=== PATIENT | female | born 1960 | race Caucasian/White ===

== ENCOUNTER → 2021-02-24 15:47 | Outpatient (CLI) | payer BC, SELFPAY ==
--- NOTE | ~2021-02-24 | MM_ITS ---
EXAMINATION: MM screening [facility] BI w flower HISTORY: Screening mammogram TECHNIQUE: Craniocaudal and mediolateral oblique 3-D tomosynthesis images were obtained and synthetic 2-D images were generated. CAD analysis was submitted and interpreted. COMPARISON: No prior mammogram is available for comparison at this institution. BREAST PARENCHYMAL COMPOSITION: There are scattered areas of fibroglandular density. FINDINGS: There is a developing circumscribed 5 mm mass in the anterior lower inner quadrant of the r ight breast (craniocaudal Tomosynthesis image 18/82; MLO Tomosynthesis image 55/85). Diagnostic right mammogram and right breast ultrasound examination are recommended. Stable low-density circumscribed lobular approximately 1.5 cm mass is noted anteriorly in the lower i nner right breast. No suspicious mass, architectural distortion, malignant calcification, skin thickening or retraction or significant new or developing density of either breast is noted otherwise. IMPRESSION: 1. Developing 5 mm mass in the anterior lower inner right breast 2. Diagnostic right mammogram and right breast ultrasound examination are recommended. BI-RADS Category 0: Incomplete: Needs additional imaging evaluation. Reviewed, dictated and finalized at location A. IMPRESSION: 1. Developing 5 mm mass in the anterior lower inner right breast 2. Diagnostic right mammogram and right breast ultrasound examination are recom mended. BI-RADS Category 0: Incomplete: Needs additional imaging evaluation.
== END ==
PROVIDERS: PCP Internal Medicine; Visit Provider Internal Medicine
DX: Z12.31 Encounter for screening mammogram for malignant neoplasm of breast (principal); R92.8 Other abnormal and inconclusive findings on diagnostic imaging of breast
CPT/HCPCS: 77063; 77067

== ENCOUNTER 2021-03-07 12:50 | Outpatient (CLI) | payer BC, SELFPAY ==
--- NOTE | ~2021-03-07 | MMUS_ITS ---
EXAMINATION: MM diagnostic mammo unilat RT, US breast RT limited HISTORY: Follow-up right breast mass TECHNIQUE: Additional 3-D tomosynthesis images of the right breast were performed and synthetic 2-D i mages were generated. CAD analysis was submitted and interpreted. High resolution Limited right breas t ultrasound was performed. COMPARISON: Comparison to multiple prior studies sequentially, with oldest reviewed study dated 03/19. BREAST PARENCHYMAL COMPOSITION: Breast composed of scattered areas of fibroglandular density. FINDINGS: MAMMOGRAPHIC FINDINGS: There is a persistent mass in the lower inner quadrant of the right breast with central lucency measu ring 6 mm, middle third. There is a larger mass with central lucency which is stable dating back to 2 014 measuring up to 1.7 cm. ULTRASOUND: Limited right breast ultrasound: Benign findings. At 3:00, 5 cm from the nipple there is a 6 mm cyst corresponding to the smaller abno rmality. At 5:00, 4 cm from the nipple, there is a complex oval circumscribed hypoechoic mass with mi xed posterior attenuation and no internal vascularity measuring 1.6 x 1.3 x 0.5 cm, likely benign ham artoma. IMPRESSION: 1. No evidence for malignancy in the right breast. 2. Routine yearly screening mammogram and regular clinical breast examination are recommended. BI-RADS Category 2: Benign finding(s). Reviewed, dictated and finalized at location A. IMPRESSION: 1. No evidence for malignancy in the right breast. 2. Routine yearly screening mammogram and regular clinical breast examination a re recommended. BI-RADS Category 2: Benign finding(s).
== END 2021-03-07 12:51 | disposition home or self-care (01) ==
LOC: ANHIMG 12:56
PROVIDERS: PCP Internal Medicine; Visit Provider Internal Medicine
DX: R92.8 Other abnormal and inconclusive findings on diagnostic imaging of breast (principal)
CPT/HCPCS: 76642; 77065

== ENCOUNTER 2022-02-13 15:05 | Outpatient (CLI) | payer BC, SELFPAY ==
--- NOTE | ~2022-02-13 | US_ITS ---
EXAMINATION: US pelvic complete w TV EXAM DATE: 02/13/2022 16:21 INDICATION: R93.89 - Abnormal findings on diagnostic imaging of other... TECHNIQUE: Pelvic transabdominal and transvaginal sonogram was performed. There are multiple graysca le and Doppler images available for interpretation. 2009 FINDINGS: Uterus measures 5.6 x 3.2 x 4.4 cm, and is morphologically normal. Endometrial stripe rosetta sures 9 mm, mildly thickened for postmenopausal status. There is no free pelvic fluid. The right ovary measures 2.0 x 1.7 x 1.4 cm, the left measuring 2.2 x 1.6 x 1.4 cm. Difficult to iden tify vascular flow in either ovary. No adnexal mass. IMPRESSION: Mildly thickened endometrium, differential diagnosis including hyperplasia and cancer. Wa s this the abnormality identified on CT? Histologic correlation may be indicated. Reviewed, dictated and finalized at location G. IMPRESSION: Mildly thickened endometrium, differential diagnosis including hype rplasia and cancer. Was this the abnormality identified on CT? Histologic corre lation may be indicated.
== END 2022-02-13 15:06 | disposition home or self-care (01) ==
PROVIDERS: PCP Internal Medicine; Visit Provider Obstetrics & Gynecology
DX: R93.89 Abnormal findings on diagnostic imaging of other specified body structures (principal)
CPT/HCPCS: 76830; 76856

== ENCOUNTER 2022-03-20 09:55 | Emergency (ER) | payer BC, SELFPAY ==
--- NOTE | 2022-03-20 09:57 | ED.URI ---
HPI - URI/Sore Throat General Chief Complaint: Ear Stated Complaint: ear pain Time Seen by Provider: 03/20/22 09:57 Source: patient Mode of arrival: ambulatory Limitations: no limitations History of Present Illness HPI Narrative: Ms. Boucher is a 62-year-old female patient presenting to the clinic today with complaints of left ear pain x1 week. She reports that she instilled some alcohol into her ear and got some rest like discharge out otherwise it has been draining some white discharge. She denies any fever or chills. MD elicited complaint: other (Ear pain) Related Data Home Medications Medication Instructions Recorded Confirmed esomeprazole magnesium 20 mg 20 mg PO DAILY 12/26/19 03/20/22 capsule,delayed release cholecalciferol (vitamin D3) 125 125 mcg PO DAILY 07/25/21 03/20/22 mcg (5,000 unit) capsule Allergies Allergy/AdvReac Type Severity Reaction Status Date / Time No Known Allergies Allergy Verified 03/10/22 14:58 Review of Systems Review of Systems: Pertinent positives per HPI. Patient denies any fever, chills, rash, headache, visual changes, dizziness, cough, shortness of breath, chest pain, palpitations, nausea, vomiting, diarrhea, constipation, abdominal pain, or any urinary issues. [facility] Past Medical History Medical History Benign essential hypertension Gastroesophageal reflux disease without esophagitis Migraine Other and unspecified hyperlipidemia Prediabetes Right thyroid nodule Surgical History Surgical History [place] teeth removed Family History Family History Sibling Depression Father Cerebrovascular accident Family history of lung cancer Alcoholism Mother Carcinoma of colon Heart disease Sibling Depression Social History Social History Smoking status: Never smoker Alcohol intake: current Substance use: never Comments At the time of my signature, I reviewed and agree with the nursing past medical, surgical, social, and family history. There is no relevant family history pertinent to the patient complaint. Exam Narrative: General: Well-developed, well nourished, in no apparent distress Head: Normocephalic, atraumatic Eyes: Pupils equally round and reactive to light bilaterally, EOM intact, sclera and conjunctive clear, no discharge, lids normal Ears: TMs intact and clear, right ear canals clear, left ear canal swollen, red, with white exudate, tenderness to palpation over the tragus and pulling of the pinna of the left ear, grossly hearing normal. Nose: Nares patent, clear discharge, no inflammation, no sinus tenderness. Mouth: Oral pharynx without lesions or masses, good dentition, MMM. Neck: Supple, trachea midline, no enlargement of anterior or posterior cervical nodes, no thyroid masses or goiter palpable. Cardio: Regular rate and rhythm, s1 and s2 normal, no murmur appreciated. Resp: Clear to auscultation bilaterally, no rhonchi, rales, wheezing or rubs Course Course Emergency Course: Portions of this record may have been created with voice recognition software. Level of Care: Express Care Visit Vital Signs Vital signs: Vital signs reviewed MDM - URI/Sore Throat MDM Narrative Medical decision making narrative: At the time of visit patient is resting comfortably on the exam table. She reports discharge coming from her left ear with left ear pain. Upon exam she has a swollen ear canal with white exudate. I suspect otitis externa and I will treat with a course of ofloxacin drops. Supportive measures were discussed with patient and she voiced understanding of discharge instructions. Differential Diagnosis Differential diagnosis: Likely sinusitis, viral infection, influenza and pharyngitis Discharge
[2022-03-20 10:04] VITALS: BP 135/82; PULSE 71; RESP 16; TEMP 35.9; O2SAT 99
== END 2022-03-20 10:24 | disposition home or self-care (01) ==
PROVIDERS: Emergency Provider Nurse Practitioner Family
DX: H60.392 Other infective otitis externa, left ear (principal); I10 Essential (primary) hypertension
CPT/HCPCS: 99213; G0463

== ENCOUNTER → 2022-10-05 12:31 | Outpatient (CLI) | payer BC, SELFPAY ==
--- NOTE | ~2022-10-05 | US_ITS ---
EXAMINATION: US pelvic complete w TV DATE: 10/05/2022 13:07 INDICATION: Thickened endometrial complex TECHNIQUE: Multiple transabdominal and endovaginal sonographic images of the pelvis were obtained. COMPARISON: 02/13/2022 FINDINGS: The uterus measures 5.4 x 3.4 x 4 cm. The endometrial complex measures 6 mm. The ovaries ar e not visualized however no adnexal abnormality is seen. There is no free fluid in the pelvis. IMPRESSION: 1. Unremarkable pelvic ultrasound. Normal endometrial thickness. Reviewed, dictated and finalized at location F. 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
== END ==
PROVIDERS: PCP Internal Medicine; Visit Provider Obstetrics & Gynecology
DX: R93.89 Abnormal findings on diagnostic imaging of other specified body structures (principal)
CPT/HCPCS: 76830; 76856

== ENCOUNTER 2022-11-27 08:51 | Outpatient (CLI) | payer BC, SELFPAY ==
--- NOTE | ~2022-11-27 | MM_ITS ---
EXAMINATION: MM screening [facility] BI w flower HISTORY: Screening mammogram TECHNIQUE: Craniocaudal and mediolateral oblique 3-D tomosynthesis images were obtained and synthetic 2-D images were generated. CAD analysis was submitted and interpreted. COMPARISON: 03/07/2021, 02/24/2021, 09/23/2018 BREAST PARENCHYMAL COMPOSITION: There are scattered areas of fibroglandular density. FINDINGS: Scattered, stable bilateral breast masses are considered benign given the lack of interval change. No suspicious mass, calcification, or architectural distortion are identified in either breas t to suggest malignancy. There has been no suspicious interval change. IMPRESSION: 1. No mammographic evidence of malignancy. 2. Recommend routine screening mammography in one year. BI-RADS Category 2: Benign finding(s). Reviewed, dictated and finalized at location A. MANAGER
== END 2022-11-27 08:52 | disposition home or self-care (01) ==
LOC: ANHIMG 08:53
PROVIDERS: PCP Internal Medicine; Visit Provider Nurse Practitioner
DX: Z12.31 Encounter for screening mammogram for malignant neoplasm of breast (principal)
CPT/HCPCS: 77063; 77067

== ENCOUNTER 2023-01-25 09:01 | Emergency (ER) | payer BC, SELFPAY ==
[2023-01-25 09:13] VITALS: BP 144/75; PULSE 86; RESP 12; TEMP 36.1; O2SAT 100
--- NOTE | 2023-01-25 09:29 | ED.URI ---
HPI - URI/Sore Throat General Chief Complaint: Upper Respiratory Infection Stated Complaint: Sore Throat Time Seen by Provider: 01/25/23 09:29 Source: patient, RN notes reviewed and old records reviewed Mode of arrival: ambulatory Limitations: no limitations History of Present Illness HPI Narrative: 63-year-old female presents to the [facility] with complaints of 10 days of upper respiratory symptoms, congestion, stuffy nose, runny nose, body aches. Two days ago started with a sore throat, reports that it feels like she is swallowing glass. Reports that her grandson tested positive for strep a couple of days ago. Reports taking Mucinex and ?every other cold medicine. ? Related Data Home Medications Medication Instructions Recorded Confirmed esomeprazole magnesium 20 mg 20 mg PO DAILY 12/26/19 01/25/23 capsule,delayed release (Nexium) cholecalciferol (vitamin D3) 125 125 mcg PO DAILY 07/25/21 01/25/23 mcg (5,000 unit) capsule Allergies Allergy/AdvReac Type Severity Reaction Status Date / Time No Known Allergies Allergy Verified 01/25/23 09:31 Review of Systems Review of Systems: All systems reviewed & are unremarkable except as noted in HPI and below Constitutional: Constitutional: Reports no additional constitutional complaints Eyes: Eyes: Reports no additional eye complaints ENT: Reports as per HPI, Reports nasal congestion, Reports nasal discharge, Reports sinus pressure, Reports sore throat, Denies throat swelling and Denies tongue swelling Cardiovascular: Cardiovascular: Reports no additional cardiovascular complaints, Denies chest pain and Denies dyspnea Respiratory: Respiratory: Reports no additional respiratory complaints, Denies chest congestion, Denies cough and Denies dyspnea Gastrointestinal: Gastrointestinal: Reports no additional gastrointestinal complaints, Denies abdominal pain, Denies nausea and Denies vomiting Musculoskeletal: Musculoskeletal: Reports no additional musculoskeletal complaints Integumentary/Breasts: Skin/Breast: Reports system reviewed and no additional complaints, except as docu Neurologic: Reports system reviewed and no additional complaints, except as documented Psychiatric: Psychiatric: Reports no additional psychiatric complaints Allergic/Immunologic: Allergic/Immunologic: Reports no additional allergic/immunologic complaints PMFSH Past Medical History Medical History Benign essential hypertension Gastroesophageal reflux disease without esophagitis Migraine Other and unspecified hyperlipidemia Prediabetes Right thyroid nodule Surgical History Surgical History [place] teeth removed Family History Family History Sibling Depression Father Cerebrovascular accident Family history of lung cancer Alcoholism Mother Carcinoma of colon Heart disease Sibling Depression Social History Social History Smoking status: Never smoker Alcohol intake: current Substance use: never Comments At the time of my signature, I reviewed and agree with the nursing past medical, surgical, social, and family history. There is no relevant family history pertinent to the patient complaint. Exam Const: General: cooperative, healthy appearing, comfortable, no acute distress, well developed, alert and well nourished Nutritional Appearance: well nourished and obese Orientation/consciousness: patient oriented x3 Limitations: no limitations HENMT: Head: normal to inspection Ears: hearing grossly normal bilaterally and external ears normal Face/Nose/Sinus: Normal external nose present, Normal nares present, Abnormal mucous membranes and turbinates present boggy and erythematous, Nasal discharge present clear bilateral and normal facial exam Face and sinus
== END 2023-01-25 10:06 | disposition home or self-care (01) ==
PROVIDERS: Emergency Provider Nurse Practitioner; PCP Nurse Practitioner
DX: J32.9 Chronic sinusitis, unspecified (principal); I10 Essential (primary) hypertension
CPT/HCPCS: 87081; 87880; 99213; G0463

== ENCOUNTER 2023-02-26 08:12 | Outpatient (CLI) | payer BC, SELFPAY ==
--- NOTE | ~2023-02-26 | CT_ITS ---
EXAMINATION:CT diagnostic chest wo con DATE: 02/26/2023 08:30 INDICATION: Pulmonary nodules. TECHNIQUE: Computed tomography (CT) of the chest was performed without intravenous contrast. Automate d exposure control and iterative reconstruction technique were employed. The dose-length product (DLP ) was 284.83 mGy-cm. COMPARISON: None. FINDINGS: There is mild scarring at the lung apices. There is a 6 mm nodule in right middle lobe. The re is a 6 mm nodule in right lower lobe. There is mild scarring in paraspinal right lower lobe. There is a 3 mm nodule in lingula. No pleural effusion. The heart size is normal. No pericardial effusion. There is a large sliding hiatal hernia. There is mild thoracic spondylosis. IMPRESSION: 1. Pulmonary nodules measuring up to 6 mm, probably benign. Consider noncontrast low-dose chest CT in 6-12 months. 2. Large sliding hiatal hernia. Reviewed, dictated and finalized at location A. IMPRESSION: 1. Pulmonary nodules measuring up to 6 mm, probably benign. Consider noncontras t low-dose chest CT in 6-12 months. 2. Large sliding hiatal hernia.
== END 2023-02-26 08:13 | disposition home or self-care (01) ==
PROVIDERS: PCP Internal Medicine; Visit Provider Nurse Practitioner
DX: R91.8 Other nonspecific abnormal finding of lung field (principal); K44.9 Diaphragmatic hernia without obstruction or gangrene
CPT/HCPCS: 71250

== ENCOUNTER 2025-10-06 13:28 | Outpatient (CLI) | payer BC, SELFPAY ==
--- NOTE | ~2025-10-06 | XR_ITS ---
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 Technique: 2 views obtained. Findings: The lungs are clear, no effusion. No pneumothorax. Heart is normal size. Mediastinal and hilar contours are within normal limits. Bony thorax no acute abnormality. Impression: No acute cardiopulmonary abnormality. Reviewed, dictated and finalized at location P. 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
== END 2025-10-06 13:29 | disposition home or self-care (01) ==
PROVIDERS: PCP Internal Medicine; Visit Provider Internal Medicine
DX: R06.09 Other forms of dyspnea (principal)
CPT/HCPCS: 71046

== ENCOUNTER 2025-10-24 08:14 | Outpatient (CLI) | payer BC, SELFPAY ==
--- NOTE | ~2025-10-24 | NM_ITS ---
EXAMINATION: NM quan stress w perfusion DATE: 10/24/2025 11:00 INDICATION: Other forms of dyspnea. TECHNIQUE: Rest images were obtained following intravenous administration of 11.22 mCi Tc99m tetrofosmin (Myoview). The patient was infused intravenously with Lexiscan (regadenoson). Then, 35 mCi Tc99m tetrofosmin (Myoview) was administered intravenously, and stress images were obtained. Data was recon structed into short axis and horizontal and vertical long axis SPECT images. Gated SPECT images were also obtained. COMPARISON: None. FINDINGS: There is no definite reversible or fixed perfusion abnormality to suggest ischemia or infarction. There is no segmental wall motion abnormality. Left ventricular ejection fraction measures >70%. IMPRESSION: 1. No definite ischemia or infarct. 2. Normal left ventricular ejection fraction measuring >70%. Reviewed, dictated and finalized at location E. HERETTE
--- NOTE | 2025-10-24 08:23 | EST_ITS ---
Patient Info Name: Luna Boucher Age: 65 years : 1960 Gender: Female Ht: 68 in Wt: 270 lbs BSA: 2.48 m2 HR: 76 bpm BP: 127 / 79 mmHg Exam Date: 10/24/2025 8:23 AM Patient Status: O Admit Date: 10/24/2025 Exam Type: CA stress quan w NM A regadenoson stress test was performed. Staff Referring Physician: Earnest Irwin DO Attending Provider: Earnest Irwin DO Exercise Technologist: Anny Lopez Exercise Physician: Rios Greco DO Summary 1. 1. Negative lexiscan stress test for ischemic ST changes by ECG criteria. 2. 2. Stable hemodynamics throughout the test. 3. 3. Nuclear scan to follow and will be reported separately. Please correlate with it. 4. 4. Patient informed of the above results. Protocol: Lexiscan Stress ECG Details Stage: REST Duration (min): 0 min : 54 sec HR (bpm): 77 SBP (mmHg): 127 DBP (mmHg): 79 Stage: REST Duration (min): 4 min : 50 sec HR (bpm): 72 SBP (mmHg): 127 DBP (mmHg): 79 Stage: STAGE 1 Duration (min): 1 min : 0 sec HR (bpm): 90 SBP (mmHg): 130 DBP (mmHg): 85 Stage: RECOVERY Duration (min): 1 min : 0 sec HR (bpm): 101 SBP (mmHg): 130 DBP (mmHg): 85 Stage: RECOVERY Duration (min): 2 min : 0 sec HR (bpm): 94 SBP (mmHg): 130 DBP (mmHg): 85 Stage: RECOVERY Duration (min): 3 min : 0 sec HR (bpm): 98 SBP (mmHg): 130 DBP (mmHg): 83 Stage: RECOVERY Duration (min): 3 min : 29 sec HR (bpm): 88 SBP (mmHg): 130 DBP (mmHg): 83 Rest HR: 72 bpm Peak HR: 101 bpm Rest Sys BP: 127 mmHg Peak Sys BP: 130 mmHg Max Pred HR: 156 bpm % Max Pred HR: 65 % Target HR: 133 bpm Max RPP: 13,130 bpm*mmHg Termination Reason: Completed protocol Cardiac Symptoms: Shortness of breath Total Time: 1 min : 0 sec Rest [place] BP: 79 mmHg Peak [place] BP: 85 mmHg Total Dose: 0.4 mg Resting ECG Sinus rhythm, borderline T wave in diffuse leads. Stress ECG No ST changes. Arrhythmias None. Report Signatures
== END 2025-10-24 08:15 | disposition home or self-care (01) ==
PROVIDERS: PCP Internal Medicine; Visit Provider Internal Medicine
DX: R06.09 Other forms of dyspnea (principal)
CPT/HCPCS: 78452; 93017; A9502; J2785

== ENCOUNTER 2025-11-01 08:31 | Outpatient (CLI) | payer BC, SELFPAY ==
--- NOTE | 2025-11-01 15:11 | WPDPFTINT ---
PFT Procedure Performed PFT Procedure Performed Spirometry with Pre/Post Bronchodilator Plethysmography (Lung Vol) Diffusing Cap (DLCO) Flow Vol Loop PFT Interpretation This is a pulmonary function test with pre and post-bronchodilator spirometry, plethysmography and diffusing capacity. The test was performed and results interpreted in accordance with the 2019 and 2005 ATS/ERS Task Force guidelines respectively using the Global Lung Function Initiative-2012 reference equations. Patient demonstrated good effort and cooperation. Reproducibility criteria were met. The quality of the pre bronchodilator spirometry maneuver was Grade A and post bronchodilator spirometry maneuver was Grade A. Findings: Spirometry: The contour the inspiratory and expiratory flow tracing are normal. The pre bronchodilator FVC is 3.15 L, 93% predicted. The pre bronchodilator FEV1 is 2.54 L, 97% predicted. The pre bronchodilator FEV1: FVC ratio is 81%. The post bronchodilator FVC is 3.18 L, representing 1% increase. The post bronchodilator FEV1 is 2.64 L, representing a 4% increase. The post bronchodilator FEV1: FVC ratio is 83%. Plethysmography: The total lung capacity is 5.69 L, 104% predicted. The functional residual capacity is 2.79 L, 89% predicted. The residual volume is 2.54 L, 115% predicted. Diffusing capacity: The diffusing capacity unadjusted for hemoglobin and carboxyhemoglobin is 21.3, 95% predicted. The diffusing capacity adjusted for alveolar volume is 4.68, 110% predicted. Impression: The spirometry is normal without evidence of an obstructive abnormality. There is no significant improvement after inhaling a single dose of albuterol. The lung volumes are normal. The diffusing capacity is normal. There are no prior studies for comparison
== END 2025-11-01 08:32 | disposition home or self-care (01) ==
PROVIDERS: PCP Internal Medicine; Visit Provider Internal Medicine
DX: R06.09 Other forms of dyspnea (principal)
CPT/HCPCS: 94060; 94726; 94729